=== PATIENT | female | born 1985 ===

== ENCOUNTER 2022-07-28 14:39 | Emergency (ER) | payer SELFPAY ==
[~2022-07-28] VITALS: Ht 167.6 cm; Wt 54.4 kg
[2022-07-28] MEDS ORDERED: NARCAN4 MG NAS (17:38)
[2022-07-28] MEDS ORDERED: ONDANSETRON ODT4 MG PO (17:39)
== END 2022-07-28 17:50 | disposition home or self-care (01) ==
LOC: ED 14:39
DX: F14.10 Cocaine abuse, uncomplicated (principal); F15.10 Other stimulant abuse, uncomplicated
CPT/HCPCS: 36415; 80053; 85025; 99284; G0480